=== PATIENT | male | born 1975 | race Caucasian/White ===

== ENCOUNTER 2022-09-22 10:38 | Emergency (ER) | payer BC, MEDICAID ==
[~2022-09-22] VITALS: Ht 182.9 cm; Wt 132.9 kg
[2022-09-22 10:46] VITALS: BP_SYST 179
--- NOTE | 2022-09-22 10:50 | NUR ---
Pt walked in to ER with c/o hematuria along with burning and urgency. H/O dialysis and reports needing it today but was instructed to come here first.
--- NOTE | 2022-09-22 11:00 | NUR ---
ER Dr. Pierre at bedside examining patient.
[2022-09-22 11:29] LABS: BILIRUBIN,URINE NEGATIVE (NEGATIVE); BLOOD, URINE 3+ (NEGATIVE); COLOR,URINE BROWN (YELLOW); GLUCOSE,URINE NEGATIVE (NEGATIVE); KETONES,URINE NEGATIVE (NEGATIVE); LEUKOCYTE ESTERASE ,URINE TRACE (NEGATIVE); NITRITE, URINE NEGATIVE (NEGATIVE); PROTEIN URINE 3+ (NEGATIVE); UROBILINOGEN,URINE 0.2 (0.2-1.0)
[2022-09-22 11:31] LABS: CLARITY/URINE SLIGHTLY HAZY (CLEAR)
[2022-09-22 11:39] LABS: BACTERIA,URINE None Seen /HPF (None Seen); RBC,URINE 20-50 /HPF (0-3)
--- NOTE | 2022-09-22 11:45 | NUR ---
Urine sent to lab
[2022-09-22] MEDS ORDERED: CEPH250C PO (12:09)
--- NOTE | 2022-09-22 13:35 | NUR ---
Patient does not wish to proceed with medical care recommended by Dr. Pierre. Patient given information related to possible complications, up to and including , which could occur as a result of leaving hospital at this time. Patient verbalizes understanding of risks involved leaving against medical advice. Patient has signed AMA form.
[2022-09-22 13:40] VITALS: BP_SYST 179
== END 2022-09-22 13:40 | disposition left against medical advice (07) ==
LOC: SED 10:38
DX: N39.0 Urinary tract infection, site not specified (principal); R31.9 Hematuria, unspecified; E87.70 Fluid overload, unspecified; N18.6 End stage renal disease; J96.01 Acute respiratory failure with hypoxia; Z79.899 Other long term (current) drug therapy
CPT/HCPCS: 81000; 99283